=== PATIENT | female | born 1945 | race Caucasian/White ===

== ENCOUNTER 2025-01-14 10:37 | Outpatient (AMB) | payer MEDICARE, SELFPAY ==
--- NOTE | 2025-01-14 10:41 | A.OFFVIS_ITS ---
Intake Visit Reasons: Neuropathy and tremor HPI Comments Details: The patient is a 80-year-old female presenting with tremor and numbness in her feet. Her tremor began in 2008 and has worsened over time, primarily becoming noticeable when engaging in tasks like holding objects, leading to occasional spills. She has been treated with metoprolol, initially at 25 mg, increased to 50 mg, for her microvascular angina, in the hope of ameliorating the tremor, but with limited success. She reports numbness in her feet, especially at night, lasting approximately one year, with a prickly, numb feeling centered under the arches. The sensation interrupts her sleep when she rises at night. Treatments prescribed by a tyre finisher and examiner, including Papawex, have only partially helped, whereas gabapentin resulted in sedation without relief. Additionally, her angina-related breathing issues worsen with exertion, causing upper limb pain and respiratory difficulty. Review of Systems Narrative Constitutional:? Complain of fatigue malaise and high blood pressure. HEENT:? She wears eyeglasses. No double vision or loss of vision. She complaints of some sinus problem. She also had diagnosis of Meniere's and ringing in ear. Cardiovascular:? She was known to have microvascular angina. Respiratory: Complain of shortness of breath. Gastrointestinal:? Complain of diarrhea and constipation. Genitourinary:? Complain of sometime incontinence and sexual difficulties due to dryness. Musculoskeletal:? Complain of joint pain and back pain. Neurological:? A melena weakness, memory problems, numbness and tingling, tremor, headaches, and dizziness. She had a head injury long time ago. Psychiatric:? Complain of anxiety. Endocrine:?No heat/cold intolerance, polydipsia, polyuria, or hair/skin changes. Hematologic/Lymphatic:?No easy bruising, bleeding, or lymphadenopathy. Integumentary (Skin):? Redness itching and rash. Allergic/Immunologic:?No seasonal allergies, hives, or recurrent infections. Physical Exam Neuro Other: Mental Status: Alert and oriented to person, place, and time. Normal attention. Normal spontaneous speech, fluency, and comprehension. No obvious issues with mood and memory. Affect is appropriate. Cranial Nerves: CN II: Visual cohen full to confrontation, visual acuity intact. CN III, IV, : Pupils equal, round, reactive to light and accommodation. Extraocular movements are normal. CN V: Facial sensation is normal. CN VII: Facial movements symmetrical. CN VIII: Hearing intact to bedside conversation is normal. CN IX, X: Palate elevates symmetrically. CN XI: Shoulder shrug and head turn symmetrical. CN XII: Tongue midline without atrophy or fasciculations. Motor: Bulk and tone normal in all extremities. No significant muscle weakness in arms and legs. No drift. Reflexes: Deep tendon reflexes 2+ and symmetric. Plantar response down-going bilaterally. Coordination: [id number] with tremor. Gait and Station: Slow and cautious. Sensory: Sensation of vibration is minimal in toes. Joint position sensation is intact. Extrapyramidal: Facial expression blinking are intact. There was [id number] bilateral hand postural or action tremor. Speech: Normal; no dysarthria or tremor. 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
--- OUTSIDE RECORDS SUMMARY | 2025-01-14 13:00 | XMS_ITS | Clinical Summary ---
Author Organization [address] Address [address] [place] [phone] Phone Care Team Providers Care Job Service Specialist Name Role Phone Sagar Hinkle MD Primary Care Provider [phone] Medications metoprolol succinate (TOPROL-XL) 25 mg 24 hr tablet Take 1 tablet (25 mg total) by mouth 1 (one) time each day. 90 tablet 1 07/03/2024 Active Medical History Medical History Date Comments Hypothyroidism DX:Hypothyroidis m Joint pain DX:Joint pain; C OMMENT: Left anterior costochondral joint pain, improved w/ topical diclofenac Aches DX:Aches; COMMEN T: Achiness in left arm with exertion with prior negative coronary angiogram Family history of cardiovascular disease DX:Family history of cardiovascular disease Essential hypertension DX:Essent ial hypertension Family History Medical History Relation Name Comments Diabetes Father Heart attack Father Heart failure Father Stroke Father Hypertension Mother at 96 Asthma Sister Relation Name Status Comments Father Mother Sister Alive Social History Tobacco Use Types Packs/Day Years Used Date Smoking Tobacco: Never Smokeless Tobacco: Never Alcohol Use Standard Drinks/Week Comments Never 0 (1 standard drink = 0.6 oz pur e alcohol) Comments Unknown Sex and Gender Information Value Date Recorded Sex Assigned at Not on file Legal Sex Female 12:59 PM EST Gender Identity Not on file Sexual Orientation Not on file Obstetrics History Last Filed Vital Signs Vital Sign Reading Time Taken Comments Blood Pressure 120/70 08/27/2023 1:25 PM EDT Sitting L Arm Pulse 78 08/27/2023 1:25 PM EDT Temperature - - Respiratory Rate - - Oxygen Saturation - - Inhaled Oxygen Concentration - - Weight 63.6 kg (140 lb 3.2 oz) 08/27/2023 1:25 PM EDT Height 162.6 cm (5' 4 ) 08/27/2023 1:25 PM EDT Body Mass Index 24.07 08/27/2023 1:25 PM EDT Plan of Treatment Upcoming Encounters Date Type Department Care Team (Late st Contact Info) Description 04/28/2025 1:30 PM EST Office Visit [facility] - [address] [facility] [address] [place] [address] Viridiana Tripathi MD [address] [place] [address] [place] [address] Health Maintenance Due Date Last Done Comments DTaP,Tdap,and Td Vaccines (1 - Tdap) 1964 RSV Immunization Adult Patients (1 - 1-dose 75+ series) 2021 Zoster Vaccines (2 of 3) 02/06/2021 12/12/2020 Cholesterol Screening (Lipid Panel) 02/13/2022 Falls Risk Assessment 02/13/2022 Hepatitis C Screening 02/13/2022 Medicare Annual Wellness Visit 02/13/2022 Osteoporosis Screening (Bone Density Screening) 02/13/2022 Social Influencers of Health Screening 02/13/2022 Depression Screening 03/18/2024 Hypertension/CHF/CAD Annual BMP Blood Test 10/16/2024 10/17/2023 COVID-19 Vaccine ( season) 2024 12/28/2022, 12/21/2021, 07/14/2021, Additional history exists Influenza Vaccine (#1) 2024 4, 11/18/2022, 12/30/2021, Additional history exists Pneumococcal Vaccine: 50+ Years Completed 03/04/2021, 03/03/2021, 01/21/2020, Additional history exists HIB Vaccines Aged Out No longer eligi ble based on patient's age to complete this topic HPV Vaccines Aged Out No longer eligi ble based on patient's age to complete this topic Hepatitis A Vaccines Aged Out No long er eligible based on patient's age to complete this topic Hepatitis B Vaccines Aged Out No long er eligible based on patient's age to complete this topic IPV Vaccines Aged Out No longer eligi ble based on patient's age to complete this topic MMR Vaccines Aged Out No longer eligi ble based on patient's age to complete this topic Meningococcal ACWY Vaccine Aged Out N o longer eligible based on patient's age to complete this topic Meningococcal B Vaccine Aged Out No l onger eligible based on patient's age to complete this topic RSV Immunization Patients Under 20 months Aged Out No longer eligible based on patient's age to complete this topic Varicella Vaccines Aged Out No longer eligible based on patient's age to complete this topic Insurance [employer] Care Teams Job Service Specialist Relationship Specialty Start Date End Date Sagar Hinkle MD PCP - General Internal Medicine 01/26/21
--- OUTSIDE RECORDS SUMMARY | 2025-01-14 13:01 | XMS_ITS | Encounter Summary ---
Author Organization [facility] Address [address] [place] [address] Care Team Providers Care Freelance Photographer Name Role Phone Sagar Hinkle MD Primary Care Provider [phone] Encounter Details Date Type Department Care Team (Late Contact Info) Description 06/17/2024 Lab Requisition [facility] - Main Lab [address] [facility] [employer] [place] [address] Sagar Hinkle MD [address] [place] [address] Acute upper respiratory infection, unspecified Social History Tobacco Use Types Packs/Day Years Used Date Smoking Tobacco: Never Smokeless Tobacco: Never Alcohol Use Standard Drinks/Week Comments Never 0 (1 standard drink = 0.6 oz pur e alcohol) Comments Unknown Sex and Gender Information Value Date Recorded Sex Assigned at Not on file Legal Sex Female 12:59 PM EST Gender Identity Not on file Sexual Orientation Not on file documented as of this encounter Plan of Treatment Upcoming Encounters Date Type Department Care Team ([facility] Contact Info) Description 04/28/2025 1:30 PM EST [facility] [address] [facility] [address] [place] [phone] Viridiana Tripathi MD [address] [place] [address] [place] [phone] Scheduled Orders Name Type Priority Associated Diagnoses Orde r Schedule [id number], RSV, Influenza A and B qualitative RT-PCR Microbiology Routine Acute upper respiratory infection, unspecified Ordered: 06/17/2024 documented as of this encounter Visit Diagnoses Diagnosis Acute upper respiratory infection, unspecified documented in this encounter Additional Health Concerns Infection Onset Date Last Indicated Resolved Time COVID-19 06/16/2024 06/16/2024 07/16/2024 7:06 PM EDT Respiratory Rule-Out 06/17/2024 06/16/2024 025 7:04 PM EDT documented as of this encounter Care Teams Freelance Photographer Relationship Specialty Start Date End Date Sagar Hinkle MD PCP - General Internal Medicine 01/26/21 documented as of this encounter
--- OUTSIDE RECORDS SUMMARY | 2025-01-14 13:01 | XMS_ITS ---
Author Name [facility] Organization Unknown Care Team Organization Name Specialty Phone Email Start Date End Da te [facility] Primary Care 10/03/20232023
== END 2025-01-14 11:01 | disposition home or self-care (01) ==
PROVIDERS: PCP Internal Medicine; Visit Provider Psychiatry & Neurology Neurology
DX: G25.0 Essential tremor (principal); G62.9 Polyneuropathy, unspecified
CPT/HCPCS: 99204

== ENCOUNTER → 2025-01-14 10:37 | Outpatient (BNVA) | payer MEDICARE, SELFPAY | PROVIDERS: PCP Internal Medicine; Visit Provider Psychiatry & Neurology Neurology | DX: G62.9 Polyneuropathy, unspecified (principal); G25.0 Essential tremor | CPT/HCPCS: 99202 ==

== ENCOUNTER 2025-03-04 10:31 | Outpatient (REF) | payer MEDICARE, SELFPAY ==
--- NOTE | 2025-03-04 11:20 | EMG_ITS ---
Chief complaint:?Numbness and tingling, peripheral neuropathy, unspecified Referred by:?Dr Chavez Procedure done: Bilateral lower extremities NCS/EMG Bilateral peroneal and tibial motor studies were performed with F responses and tibial H reflexes. Bilateral superficial peroneal and sural sensory studies and median lateral mixed plantars sensory studies were performed and needle examination was performed. Findings: Motor nerve conduction studies did not reveal any significant abnormality. Right superficial peroneal was absent. Sural studies were okay. Plantars studies did not reveal mild reduction of amplitude. Impression: Mild sensory neuropathy affecting feet. No evidence of radiculopathy. Coding:? [id number] 2 extremities MTDD
--- OUTSIDE RECORDS SUMMARY | 2025-03-04 13:14 | XMS_ITS | Clinical Summary ---
Author Organization [address] Address [address] [place] [phone] Phone Care Team Providers Care Battery Technician Name Role Phone Sagar Hinkle MD Primary Care Provider [phone] Medications metoprolol succinate (TOPROL-XL) 25 mg 24 [...] on file Sexual Orientation Not on file Last Filed Vital Signs Vital Sign Reading [...] Description 04/28/2025 1:30 PM EST Office Visit [facility] - [address] [facility] [address] [place] [phone] Viridiana Tripathi MD [address] [place] [address] [place] [phone] Health Maintenance Due Date Last Done Comments [...] Additional history exists Influenza Vaccine (#1) 2024 , 11/18/2022, 12/30/2021, Additional history exists Pneumococcal Vaccine: [...] [employer] Care Teams Battery Technician Relationship Specialty Start Date End Date Sagar Hinkle MD PCP - General Internal Medicine 01/26/21
--- OUTSIDE RECORDS SUMMARY | 2025-03-04 13:14 | XMS_ITS | Encounter Summary ---
Author Organization [facility] Address [address] [place] [address] Care Team Providers Care Tapper Helper Name Role Phone Sagar Hinkle MD Primary Care Provider [phone] Encounter Details Date Type Department Care Team (Late Contact Info) Description 06/17/2024 Lab Requisition [facility] - Main Lab [address] [facility] [place] [address] Sagar Hinkle MD [address] [place] [address] Acute upper respiratory infection, unspecified Social History [...] Upcoming Encounters Date Type Department Care Team ([facility] Contact Info) Description 04/28/2025 1:30 PM EST Office Visit [facility] - [facility] [address] [facility] [address] [place] [phone] Viridiana Tripathi MD [address] [place] [address] [place] [phone] Scheduled Orders Name Type Priority Associated Diagnoses Orde r Schedule [id number], RSV, Influenza A and B qualitative RT-PCR [...] documented as of this encounter Care Teams Tapper Helper Relationship Specialty Start Date End Date Sagar Hinkle MD PCP - General Internal Medicine 01/26/21 documented as of this encounter
== END 2025-03-04 10:32 | disposition home or self-care (01) ==
LOC: HO.NEURO 10:31
PROVIDERS: PCP Internal Medicine; Visit Provider Psychiatry & Neurology Neurology
DX: R20.0 Anesthesia of skin (principal); R20.2 Paresthesia of skin; G62.9 Polyneuropathy, unspecified
CPT/HCPCS: 95886; 95913

== ENCOUNTER → 2025-03-04 11:20 | Outpatient (BNV) | payer MEDICARE, SELFPAY | PROVIDERS: PCP Internal Medicine; Visit Provider Psychiatry & Neurology Neurology | DX: G62.9 Polyneuropathy, unspecified (principal) | CPT/HCPCS: 95886; 95912 ==